=== PATIENT | male | born 1985 | race Caucasian/White ===

== ENCOUNTER → 2024-06-16 11:45 | Outpatient (REF) | payer OTHER, SELFPAY | LOC: RAD 11:45 | PROVIDERS: ATTENDING PHYSICIAN Family Medicine | DX: M25.551 Pain in right hip (principal); M54.41 Lumbago with sciatica, right side | CPT/HCPCS: 72110; 73502 ==

== ENCOUNTER 2024-07-25 23:40 | Emergency (ER) | payer OTHER, SELFPAY ==
[2024-07-25 23:41] VITALS: BP 170/113
[2024-07-26 00:06] LABS: Urine Albumin Negative (Neg - Trace); Urine Bilirubin Negative (Negative); Urine Character Clear (Clear); Urine Color Yellow; Urine Glucose Negative (Negative); Urine Ketone Negative (Negative); Urine Leukocyte Negative (Negative); Urine Nitrite Negative (Negative); Urine Occult Blood Negative (Negative); Urine Specific Gravity 1.005 (<1.030); Urine Urobilinogen Negative (Neg - 1+)
[2024-07-26 00:28] LABS: % Basophils 0.6 % (0-2); % Eosinophils 1.1 % (0-6); % Immature Granulocytes 0.2 % (0-0.5); % Lymphocytes 46.5 % (20.5-51.1); % Monocytes 8.1 % (1.7-9.3); % Neutrophils 43.5 % (42.2-75.2); Absolute Basophils 0.1 10^3/uL (0-0.2); Absolute Eosinophils 0.1 10^3/uL (0-0.7); Absolute Lymphocytes 3.7 10^3/uL (1.2-3.4); Absolute Monocytes 0.7 10^3/uL (0.1-0.6); Absolute Neutrophils 3.5 10^3/uL (1.4-6.5); Hematocrit 39.2 % (39.0-52.0); Hemoglobin 13.9 g/dL (13.0-18.0); Mean Corp Hgb Conc. 35.5 g/dL (33.0-37.0); Mean Corpuscular Hgb 30.5 pg (27.0-31.0); Mean Platelet Volume 10.1 fL (7.4-10.4); Nucleated Red Blood Cells % 0 % (-); Platelet Count 190 10^3/uL (130-400); Red Blood Cell Count 4.56 10^6/uL (4.70-6.10); Red Cell Dist. Width 12.7 % (11.5-14.5); White Blood Cell Count 8.1 10^3/uL (4.8-10.8)
[2024-07-26 00:31] LABS: ALT (SGPT) 25 U/L (0-50); AST (SGOT) 32 U/L (17-59); Albumin 4.9 g/dl (3.5-5.0); Alkaline Phosphatase 62 U/L (38-126); Blood Urea Nitrogen 19 mg/dl (9-20); Calcium 9.8 mg/dl (8.4-10.2); Carbon Dioxide 26 mmol/L (22-30); Chloride 105 mmol/L (98-107); Glucose 96 mg/dl (70-99); Potassium 3.7 mmol/L (3.5-5.1); Sodium 146 mmol/L (135-145); Total Bilirubin 0.5 mg/dl (0.2-1.3); Total Protein 7.1 g/dl (6.3-8.2); eGFR > 60.00
--- NOTE | 2024-07-26 00:32 | ED.GENMED ---
History of Present Illness
General
Chief Complaint: Male Genito-Urinary Symptoms
Source: patient
Time Seen by Provider: 07/25/24 23:46
History of Present Illness
History of Present Illness:
39yoM with no significant past medical history presenting for evaluation of testicular pain. Patient reports ongoing groin pain for the past several months. He was treated empirically for epididymitis with Levaquin x 10 days in May although no
scrotal imaging was performed. Patient has been seen by his PCP, orthopedics, and a chiropractor for his groin pain. He has underwent MRI of his right hip and lumbar spine which were unremarkable. Patient was trying to sleep this evening when he
started to notice worsening scrotal discomfort prompting him to come to the ED. He denies any fevers, flank pain, vomiting, dysuria. He denies any concern for STDs and is currently in a monogamous relationship with his
Past History
Past History
ED Past Medical History: None
ED Past Surgical History: Urological
Social History
Tobacco: Non-smoker
Alcohol: None
Drug: None
Phy Exam
General Physical Exam
General Presentation: well appearing and no apparent distress
General age: appears stated age
General Skin: warm and dry
General Habitus: normal
General Mental: alert
ENT Exam
ENT Exam: normocephalic
Pulmonary Exam
Pulmonary Exam: no respiratory distress
Gastrointestinal Exam
Gastrointestinal Exam: non tender, soft, non distended and no cva tenderness
Genitourinary Exam Male
Exam Male: normal external genitalia, no testicular swelling and other (Minimal testicular tenderness bilaterally. No swelling or erythema. No palpable hernias. )
[place] Coma Scale
Eye Opening: Spontaneous
Verbal Response: Oriented
Motor Response: Obeys Commands
GCS Total Score: 15
Skin Exam
Skin Exam: normal color and warm/dry
Psychiatric Exam
Psychiatric Exam: normal mood/affect
Course
Orders/Labs/Results
Orders:
Orders
07/25/24 23:54
Urinalysis Reflex To Culture Urgent
Date Specimen was Collected: 07/25/24
Time Specimen was Collected: 23:51
Chlamydia/GC by PCR Urgent
BOWEN Source: Urine
Specimen Description:
Source:: URINE
Date Specimen was Collected: 07/25/24
Time Specimen was Collected: 23:50
07/26/24 00:00
US Scrotum Urgent
Reason For Exam: testicular pain
07/26/24 00:05
CT Abd/pelvis W Iv Cont Urgent
Comment:
Reason For Exam: Groin pain
07/26/24 00:09
Complete Blood Count/With Diff Urgent
Comprehensive Metabolic Panel Urgent
07/26/24 01:32
Ceftriaxone Sodium [Rocephin] 500.15 mg .ROUTE .STK-MED ONE
07/26/24 01:33
Sterile Water [Sterile Water For Injection] 10 ml .ROUTE .STK-MED ONE
07/26/24 01:34
Sterile Water [Sterile Water For Injection] 10 ml .ROUTE .STK-MED ONE
07/26/24 01:35
Sterile Water [Sterile Water For Injection] 10 ml .ROUTE .STK-MED ONE
Abnormal Lab Results
07/26/24
00:09
RBC 4.56 L 10^6/uL
(4.70-6.10)
Absolute Lymphs (auto) 3.7 H 10^3/uL
(1.2-3.4)
Absolute Monos (auto) 0.7 H 10^3/uL
(0.1-0.6)
Sodium 146 H mmol/L
(135-145)
07/26/24 00:09
07/26/24 00:09
Vital Signs
Initial and Last Documented VS:
Initial Vital Signs
Temp Pulse Resp BP Pulse Ox
99.0 F 81 18 170/113 100
07/25/24 23:41 07/25/24 23:41 07/25/24 23:41 07/25/24 23:41 07/25/24 23:41
Last Documented Vital Signs
Temp Pulse Resp BP Pulse Ox
99.0 F 81 18 170/113 100
07/25/24 23:41 07/25/24 23:41 07/25/24 23:41 07/25/24 23:41 07/25/24 23:41
MDM/Problems Addressed
Differential Diagnosis Includes:
39yoM here with bilateral testicular pain. Ongoing x several months but worsening this evening. No urinary complaints or fevers. He was treated for epididymitis 2 months ago but never had a testicular imaging. He is hypertensive with otherwise
normal vitals. He is well appearing in no distress. No testicular swelling or hernias noted on exam. Differential diagnosis includes but is not limited to: epididymitis, orchitis, inguinal hernia, prostatitis, less likely testicular torsion
Initial ED plan: Check CBC, CMP, UA, GC/chlamydia testing, scrotal ultrasound, and CT abdomen.
*Critical Care Note
Total Time (30-74mins, 75-104mins- exclusive of procedures): Not Applicable
Update Note
Update Note:
Labs unremarkable including normal white count and renal function. UA bland without signs of infection. CT abdomen is negative for acute findings. Specifically, there is no evidence of prostatitis or inguinal hernia. Scrotal ultrasound shows
questionable mild increased Doppler flow of the bilateral epididymides. Changes are probably incidental but correlate clinically for any signs/symptoms of mild epididymitis. Small bilateral hydroceles also seen.
Findings discussed with patient. Will give IM Rocephin here and cover with doxycycline x 10 days. Supportive care discussed including scrotal elevation and PRN NSAIDs. He was advised to f/u with urology. ED return precautions discussed. He was
discharged in stable condition. [facility] and he was given a paper prescription for the doxycycline.
ED Attending Note
-
Portions of this chart may have been created with voice recognition software.� Occasional wrong word or��sound alike� substitutions may have occurred due to the inherent limitations of voice recognition software.
Discharge Plan
Departure
Patient Disposition: Home (Routine Discharge)
Patient with high blood pressure during this ER visit?: Yes
Discharge Problem:
Bilateral epididymitis
Prescriptions:
No Action
doxycycline hyclate 100 MG capsule
100 mg PO Q12
sulfamethoxazole-trimethoprim 1 TABLET tablet
1 tab PO BID
prednisone 10 MG tablets,dose pack
30 mg PO .DAILY TAPERING
indomethacin 50 MG capsule
50 mg PO TID PRN (Reason: pain) Qty: 30 0RF
Referrals:
UNKNOWN - PT DOES,NOT KNOW [Unknown Provider] -
Interventions
Interventions:
*Risk Screen - Suicide Last Done: 07/25/24 23:41
*General Assessment Last Done: 07/25/24 23:41
*Neglect/Abuse Screening Last Done: 07/25/24 23:41
ED- Fall Risk Assessment Last Done: 07/26/24 00:24
*ED COVID-19 Vaccine History Last Done: 07/26/24 00:22
ED-Male Genitourinary Assessment Last Done: 07/26/24 00:22
Discharge Date and Time
Discharge Date/Time: 07/26/24 01:50
Print Language: GUAMANIAN
--- NOTE | 2024-07-26 03:09 | DOWNTIME ---
There was a [employer] Downtime on 07/26/2024 from 0100 to 07/26/2024 at 0300. Downtime documentation of patient's care, including medication administrations, has been reconciled in the electronic record per guidelines. Refer to the
patient's paper chart under the miscellaneous tab to see printed paper medication records and downtime forms.
== END 2024-07-26 01:50 | disposition home or self-care (01) ==
LOC: EMR 23:40
PROVIDERS: Physician Assistant; EMERGENCY PHYSICIAN Student in an Organized Health Care Education/Training Program; FAMILY PHYSICIAN Family Medicine
DX: N45.1 Epididymitis (principal); N43.3 Hydrocele, unspecified
CPT/HCPCS: 99284; 74177; 76870; 80053; 81003; 85025; 87491; 87591; 93976; Q9967

== ENCOUNTER 2024-10-10 19:01 | Emergency (ER) | payer OTHER, SELFPAY ==
[2024-10-10 19:11] VITALS: BP 164/109
[2024-10-10 19:27] LABS: % Basophils 0.6 % (0-2); % Immature Granulocytes 0.3 % (0-0.5); % Lymphocytes 39.3 % (20.5-51.1); % Monocytes 7.4 % (1.7-9.3); % Neutrophils 51.4 % (42.2-75.2); Absolute Eosinophils 0.1 10^3/uL (0-0.7); Absolute Lymphocytes 2.7 10^3/uL (1.2-3.4); Absolute Monocytes 0.5 10^3/uL (0.1-0.6); Absolute Neutrophils 3.5 10^3/uL (1.4-6.5); Hematocrit 42.6 % (39.0-52.0); Mean Corp Hgb Conc. 35.2 g/dL (33.0-37.0); Mean Corpuscular Hgb 31.1 pg (27.0-31.0); Mean Corpuscular Volume 88.4 fL (80.0-94.0); Mean Platelet Volume 9.6 fL (7.4-10.4); Nucleated Red Blood Cells % 0 % (-); Platelet Count 192 10^3/uL (130-400); Red Blood Cell Count 4.82 10^6/uL (4.70-6.10); Red Cell Dist. Width 12.3 % (11.5-14.5); White Blood Cell Count 6.8 10^3/uL (4.8-10.8)
[2024-10-10 19:46] LABS: ALT (SGPT) 55 U/L (0-50); AST (SGOT) 51 U/L (17-59); Albumin 5.2 g/dl (3.5-5.0); Alkaline Phosphatase 55 U/L (38-126); Blood Urea Nitrogen 18 mg/dl (9-20); Calcium 10.2 mg/dl (8.4-10.2); Carbon Dioxide 29 mmol/L (22-30); Chloride 100 mmol/L (98-107); Glucose 121 mg/dl (70-99); Potassium 4.3 mmol/L (3.5-5.1); Sodium 142 mmol/L (135-145); Total Bilirubin 0.5 mg/dl (0.2-1.3); Total Protein 7.8 g/dl (6.3-8.2); eGFR > 60.00
[2024-10-10 19:49] LABS: Troponin I < 0.012 ng/ml
--- NOTE | 2024-10-10 20:51 | ED.GENMED ---
History of Present Illness
General
Chief Complaint: Heart Rate Problem
Source: patient
Exam Limitations: none
Time Seen by Provider: 10/10/24 20:37
History of Present Illness
History of Present Illness:
This is a 39 year old male that comes in with c/o chest pain. State that yesterday after lunch he had some heart burn. States that this lasted about an hour and went away. Then today again around 121 noon he started with this tight burning feeling
in his chest and went up to his neck. States that this lasted about 4-5 hours and again went away. States that he got home from work and told his that he had the worse heart burn and she gave him TUMS. States that he felt better. States that he
felt like his heart was pounding and he checked his watch and his heart rate was 107. States that he has a slight headache and just feels kind of cloudy. Denies any fever, chills, SOB, abd pain, nausea, vomiting, diarrhea, urinary burning.
Past History
Past History
ED Past Medical History: Hypercholesterolemia; Negative Asthma, HTN or NIDDM
ED Past Surgical History: Urological (Vasectomy)
Social History
Tobacco: Non-smoker
Alcohol: Occasional
Drug: None
Personal:
Living: with family
Employment: Employed
Review of Systems
Review of Systems
All Other Systems: ROS reviewed and negative except as documented in HPI and ROS
Constitutional: Reports no symptoms; Denies fever or chills
EENT: Reports no symptoms
Respiratory: Reports no symptoms; Denies cough or trouble breathing
Cardiac: Reports chest pain
ABD/GI: Reports no symptoms; Denies abdominal pain, nausea, vomiting or diarrhea
: Reports no symptoms; Denies dysuria, frequency or urgency
Musculoskeletal: Reports no symptoms
Skin: Reports no symptoms
Neurological: Reports headache (Slight); Denies dizzy
Psychiatric: Reports no symptoms
Phy Exam
General Physical Exam
General Presentation: well appearing and no apparent distress
General age: appears stated age
General Skin: warm and dry
General Habitus: normal
General Mental: alert
General Hydration: appears well hydrated
ENT Exam
ENT Exam: TM's normal, pharynx normal and neck supple
Eye Exam
Eye Exam: EOMI
Cardiovascular Exam
Cardiovascular Exam: regular rate/rhythm, no edema, no murmur and normal peripheral pulses
Pulmonary Exam
Pulmonary Exam: lungs clear, no respiratory distress, no rales, chest non tender, no crackles, no rhonchi, no wheezing and no cough
Gastrointestinal Exam
Gastrointestinal Exam: normal bowel sounds, non tender, soft, no organomegaly, no pulsatile mass and non distended
Musculoskeletal Exam
Musculoskeletal Exam: full ROM and no edema
Skin Exam
Skin Exam: normal color, warm/dry, no rash and no petechia
Psychiatric Exam
Psychiatric Exam: normal mood/affect
Course
Orders/Labs/Results
Orders:
Orders
10/10/24 19:02
ECG [Electrocardiogram (*1)] Urgent
Reason for Study: Tachycardia
EKG- Treatment ONCE
10/10/24 19:20
Complete Blood Count/With Diff Urgent
Comprehensive Metabolic Panel Urgent
Troponin I Urgent
10/10/24 20:50
EKG- Treatment ONCE
Pantoprazole [Protonix] 40 mg PO NOW STA
CR Chest - 2 Views Urgent
Comment:
Reason For Exam: Chest pain
10/10/24 22:17
Troponin I Urgent
10/10/24 22:20
Electrocardiogram (*1) Urgent
Reason for Study: Chest Pain
Other Reason for Exam: Repeat with Troponin
Abnormal Lab Results
10/10/24
19:20
MCH 31.1 H pg
(27.0-31.0)
Glucose 121 H mg/dl
(70-99)
ALT 55 H U/L
(0-50)
Albumin 5.2 H g/dl
(3.5-5.0)
10/10/24 19:20
10/10/24 19:20
Hyperglycemic (patient states that he eat just before coming), ALT slightly elevated. Albumin slightly elevated. Troponin <0.012
Second Troponin <0.012
Vital Signs
Initial and Last Documented VS:
Initial Vital Signs
Pulse Resp BP Pulse Ox
88 18 164/109 100
10/10/24 19:11 10/10/24 19:11 10/10/24 19:11 10/10/24 19:11
Last Documented Vital Signs
Pulse Resp BP Pulse Ox
75 16 132/81 100
10/10/24 22:57 10/10/24 22:57 10/10/24 22:57 10/10/24 22:57
MDM/Problems Addressed
Differential Diagnosis Includes:
GERD, Coronary syndrome
MDM/Problems Addressed:
This is a 39 year old male that comes in with c/o chest discomfort. States that yesterday he had some chest discomfort that last for about 1 hour and then was gone. Then today around 12 noon he started with discomfort again. States that he told his
when he got home that this was the worse heart burn that he ever had. State that this lasted 4-5 hours. Patient gave him TUMS but he felt he needed to be seen.
Will check labs. Chest x-ray. Will give Protonix.
Back into see patient. Explained that both Troponin are normal along with the chest X-ray and ECG. Will place patient on Protonix to help with Reflux. Encourage patient to decrease his Caffeine intake. Follow up with the family doctor. Return with
any concerns.
Chronic conditions affecting care:
NA
Acute Exacerbation and/or Progression of Chronic Illness:
NA
*Pulse Oximetry
Patient hypoxic: no
*EKG
Interpreted by ED Provider?: Yes
Heart Rate: 83
Rate: normal
Rhythm: sinus
[place]: left axis deviation
Interval: normal interval
QRS Pattern: normal QRS
Ischemia: no ischemia
*Rotor Casting Machine Operator Interpretation
Rate: Rotor Casting Machine Operator- N/A
*Critical Care Note
Total Time (30-74mins, 75-104mins- exclusive of procedures): Not Applicable
ED Attending Note
-
Portions of this chart may have been created with voice recognition software.� Occasional wrong word or��sound alike� substitutions may have occurred due to the inherent limitations of voice recognition software.
Discharge Plan
Departure
Patient Disposition: Home (Routine Discharge)
Date of Disposition: 10/10/24
Time of Disposition: 23:14
Patient with high blood pressure during this ER visit?: Yes
Condition: Good
Covid-19: Not Applicable
Discharge Problem:
GERD (gastroesophageal reflux disease), Chest pain
Instructions: Acid reflux and GERD in adults, Chest Pain PCP Follow Up, BLOOD PRESSURE
Prescriptions:
New
pantoprazole [Protonix] 40 mg tablet,delayed release (DR/EC)
40 mg PO DAILY Qty: 30 0RF
No Action
doxycycline hyclate 100 MG capsule
100 mg PO Q12
sulfamethoxazole-trimethoprim 1 TABLET tablet
1 tab PO BID
prednisone 10 MG tablets,dose pack
30 mg PO .DAILY TAPERING
indomethacin 50 MG capsule
50 mg PO TID PRN (Reason: pain) Qty: 30 0RF
Referrals:
Citlaly Jones DO [Family Provider] - Follow up in 2-3 days
Activity Restrictions/Additional Instructions:
As discussed, your ECG are normal along with your blood work. Your chest x-ray is normal. This may be due to Reflux. You have had a prescription for Protonix sent to your Pharmacy to help with the reflux. Please decrease your caffeine intake as this
is irritating to the stomach lining and will make the reflux worse. Follow up with the family doctor for further evaluaiton. IF YOU HAVE INCREASED OR CHANGING CHEST PAIN, OR YOU HAVE ANY OTHER CONCERNS PLEASE RETURN TO THE EMERGENCY ROOM.
Interventions
Interventions:
*Risk Screen - Suicide Last Done: 10/10/24 21:33
*General Assessment Last Done: 10/10/24 19:13
*Neglect/Abuse Screening Last Done: 10/10/24 21:33
*ED COVID-19 Vaccine History Last Done: 10/10/24 21:33
ED- Cardiac Assessment Last Done: 10/10/24 21:33
ED- Pulmonary Assessment Last Done: 10/10/24 21:35
Discharge Date and Time
Print Language: IVORIAN
[2024-10-10] MEDS: PROTONIX 40 MG PO (21:28)
[2024-10-10 21:33] VITALS: BP 153/85
[2024-10-10 22:47] LABS: Troponin I < 0.012 ng/ml
[2024-10-10 22:57] VITALS: BP 132/81
== END 2024-10-10 23:33 | disposition home or self-care (01) ==
LOC: EMR 19:01
PROVIDERS: Clinical Nurse Specialist Family Health; Emergency Medicine; EMERGENCY PHYSICIAN Emergency Medicine; FAMILY PHYSICIAN Family Medicine
DX: R07.89 Other chest pain (principal); K21.9 Gastro-esophageal reflux disease without esophagitis; E78.00 Pure hypercholesterolemia, unspecified; E11.65 Type 2 diabetes mellitus with hyperglycemia
CPT/HCPCS: 99283; 71046; 80053; 84484; 85025; 93005

== ENCOUNTER → 2024-10-17 08:31 | Outpatient (REF) | payer OTHER, SELFPAY | LOC: RCS 08:31 | PROVIDERS: ATTENDING PHYSICIAN Family Medicine | DX: R07.89 Other chest pain (principal) | CPT/HCPCS: 93225; 93226 ==

== ENCOUNTER → 2024-11-03 12:43 | Outpatient (REF) | payer OTHER, SELFPAY | LOC: RCS 12:43 | PROVIDERS: ATTENDING PHYSICIAN Family Medicine | DX: I72.9 Aneurysm of unspecified site (principal) | CPT/HCPCS: 93306 ==

== ENCOUNTER → 2024-12-26 13:43 | Outpatient (REF) | payer OTHER, SELFPAY | LOC: MRI 3T 13:43 | PROVIDERS: ATTENDING PHYSICIAN Orthopaedic Surgery Hand Surgery; FAMILY PHYSICIAN Family Medicine | DX: M75.42 Impingement syndrome of left shoulder (principal) | CPT/HCPCS: 23350; 73040; 73222 ==